=== PATIENT | male | born 1940 | race Caucasian/White ===

== ENCOUNTER 2017-07-03 11:51 | Inpatient (IN) | payer MEDICARE ==
[~2017-07-03] VITALS: Ht 180.3 cm; Wt 89.9 kg
[~2017-07-03 11:51] MED LIST: ACET500T55 PO; ASPI-630 PO; CLON0.1T12 PO; GABA600T2 PO; HYDR100T24 PO; METO50TA2 PO; METO50TA29 PO; PRAV20TA2 PO; PRIM50TA PO; VENL37.57 PO
[2017-07-03 12:41] VITALS: BP 172/94
[2017-07-03] MEDS ORDERED: METO50TA29 PO (13:01)
[2017-07-03] MEDS ORDERED: ACET-704 PO (13:01)
[2017-07-03] MEDS ORDERED: PRED20TA PO (13:01)
[2017-07-03] MEDS ORDERED: IV NORMAL SALINE 1,000ML 1,000 ML IV SCH (13:30)
[2017-07-03] MEDS ORDERED: ACETAMINOPHEN/CODEINE 300/30MG TABLET PO PRN (13:30)
[2017-07-03 13:45] LABS: BASO % 1 % (0-3); EOS % 0 % (0-3); HEMATOCRIT 37.7 % (39.0-53.0); LYMPH # 0.8 x10^3/uL (1.0-4.8); LYMPH % 10 % (24-48); MEAN CORPUSCULAR HEMOGLOBIN 32 pg (25-35); MEAN CORPUSCULAR HGB CONC 35 g/dL (31-37); MEAN CORPUSCULAR VOLUME 94 fL (79-100); MONO # 0.6 x10^3/uL (0.0-1.1); MONO % 7 % (0-9); NEUT # 6.9 x10^3uL (1.8-7.7); NEUT % 82 % (31-73); PLATELET COUNT 242 x10^3/uL (140-400); RED BLOOD COUNT 4.03 x10^6/uL (4.30-5.70); RED CELL DISTRIBUTION WIDTH 13.8 % (11.5-14.5); WHITE BLOOD COUNT 8.3 x10^3/uL (4.0-11.0)
[2017-07-03 13:58] LABS: ALBUMIN 3.3 g/dL (3.4-5.0); ALBUMIN/GLOBULIN RATIO 1.1 (1.0-1.7); CALCIUM 9.2 mg/dL (8.5-10.1); GFR 72.8; TOTAL BILIRUBIN 0.5 mg/dL (0.2-1.0); TOTAL PROTEIN 6.4 g/dL (6.4-8.2)
[2017-07-03] MEDS ORDERED: VIT1CAPS17 PO (15:30)
[2017-07-03] MEDS ORDERED: AMLO10TA2 PO (15:30)
[2017-07-03] MEDS ORDERED: MELO15TA6 PO (15:30)
[2017-07-03] MEDS ORDERED: PRAZ2CAP2 PO (15:30)
[2017-07-03] MEDS ORDERED: LOSA100T6 PO (15:30)
[2017-07-03 16:14] VITALS: BP 131/73
[2017-07-03] MEDS: GABAPENTIN 300 MG CAPSULE. PO SCH ×2 (16:29→20:55)
[2017-07-03] MEDS: ACETAMINOPHEN 500 MG TABLET PO PRN (17:34)
[2017-07-03 19:28] VITALS: BP 148/87
[2017-07-03] MEDS: methylPREDNISolone SOD SUCC PF 40 MG/ML VIAL. IV SCH (20:51)
[2017-07-03] MEDS: METOPROLOL SUCC 24HR ER 50 MG TAB.ER.24H. PO SCH (20:53)
[2017-07-03] MEDS ORDERED: PRAZOSIN 1 MG CAPSULE. PO SCH (21:00)
[2017-07-03] MEDS ORDERED: PRAVASTATIN 20 MG TABLET. PO SCH (21:00)
[2017-07-03] MEDS ORDERED: PRIMIDONE 50 MG TABLET PO SCH ×2 (21:00)
[2017-07-03 23:48] VITALS: BP 150/94
[2017-07-04] MEDS: ACETAMINOPHEN 500 MG TABLET PO PRN (01:41)
[2017-07-04 02:21] LABS: CLARITY,URINE CLEAR; COLOR,URINE YELLOW; GLUCOSE,URINE >=1000 mg/dL (NEG)
[2017-07-04 02:22] LABS: BACTERIA,URINE 0 /HPF (0-FEW); BILIRUBIN,URINE NEG (NEG); NITRITE,URINE NEG (NEG); RBC,URINE 0 /HPF (0-2); SQUAMOUS EPITHELIAL CELL,UR OCC /LPF; UROBILINOGEN,URINE 0.2 mg/dL (0.2 mg/dL); WBC,URINE RARE /HPF (0-4)
[2017-07-04 05:52] VITALS: BP 165/97
[2017-07-04 06:51] LABS: BASO % 0 % (0-3); EOS % 0 % (0-3); HEMATOCRIT 38.2 % (39.0-53.0); HEMOGLOBIN 13.1 g/dL (13.0-17.5); LYMPH # 0.9 x10^3/uL (1.0-4.8); LYMPH % 12 % (24-48); MEAN CORPUSCULAR HEMOGLOBIN 32 pg (25-35); MEAN CORPUSCULAR HGB CONC 34 g/dL (31-37); MEAN CORPUSCULAR VOLUME 94 fL (79-100); MONO # 0.4 x10^3/uL (0.0-1.1); MONO % 5 % (0-9); NEUT # 6.3 x10^3uL (1.8-7.7); NEUT % 82 % (31-73); PLATELET COUNT 231 x10^3/uL (140-400); RED BLOOD COUNT 4.09 x10^6/uL (4.30-5.70); RED CELL DISTRIBUTION WIDTH 13.9 % (11.5-14.5); WHITE BLOOD COUNT 7.7 x10^3/uL (4.0-11.0)
[2017-07-04 07:07] LABS: CALCIUM 9.3 mg/dL (8.5-10.1); CREATININE 0.9 mg/dL (0.7-1.3); GFR 82.3; POTASSIUM 4.3 mmol/L (3.5-5.1)
[2017-07-04] MEDS: methylPREDNISolone SOD SUCC PF 40 MG/ML VIAL. IV SCH (08:30)
[2017-07-04] MEDS: GABAPENTIN 300 MG CAPSULE. PO SCH (08:32)
[2017-07-04] MEDS ORDERED: LOSARTAN 50 MG TABLET. PO SCH (09:00)
[2017-07-04] MEDS ORDERED: VENLAFAXINE XR 37.5 MG CAP.ER.24H. PO SCH (09:00)
[2017-07-04] MEDS ORDERED: amLODIPine BESYLATE 10 MG TABLET PO SCH (09:00)
[2017-07-04] MEDS ORDERED: MELOXICAM 15 MG TABLET. PO SCH (09:00)
[2017-07-04] MEDS ORDERED: ASPIRIN 81 MG TAB.CHEW PO SCH (09:00)
[2017-07-04] MEDS ORDERED: MULTIVITAMIN I-VITE TABLET. PO SCH (09:00)
[2017-07-04] MEDS ORDERED: PRAVASTATIN 20 MG TABLET. PO SCH (09:00)
[2017-07-04 10:38] VITALS: BP 156/87
[2017-07-04 10:53] VITALS: BP 156/87
[2017-07-04] MEDS: METOPROLOL SUCC 24HR ER 50 MG TAB.ER.24H. PO SCH (10:53)
[2017-07-04] MEDS ORDERED: METH4TAB2 PO (13:32)
[2017-07-05 03:07] LABS: HEMOGLOBIN A1C 7.7 % (4.8-5.6)
== END 2017-07-04 14:04 | disposition home or self-care (01) | DRG 312 ==
LOC: 1 SOUTH 12:07
PROVIDERS: ADMIT Family Medicine; ATTEND Family Medicine
DX: I95.2 Hypotension due to drugs (principal); I10 Essential (primary) hypertension; R79.89 Other specified abnormal findings of blood chemistry; L23.7 Allergic contact dermatitis due to plants, except food; Z95.0 Presence of cardiac pacemaker
CPT/HCPCS: 36415; 80048; 80053; 81001; 82947; 83036; 85025; J2920